=== PATIENT | male | born 1930 | race Caucasian/White ===

== ENCOUNTER 2017-01-05 10:59 | Emergency (ER) | payer OTHER, MEDICARE ==
[~2017-01-05] VITALS: Ht 180.3 cm; Wt 82.6 kg
[~2017-01-05 10:59] MED LIST: AUGMENTIN 875-1 EACH PO; DORZOLAMIDE-TIM10 ML OPH; FIBER500 MG PO; HYDROCHLOROTH12.5 M3 PO; MULTIVITAMINS1 EAC9 PO; TRAVATAN Z5 ML OPH; VERAPAMIL ER240 MG PO
[2017-01-05 11:05] VITALS: BP 145/76
--- NOTE | 2017-01-05 11:28 | ED GENERAL ADULT ---
History of Present Illness General Chief Complaint: Laceration Procedure Stated Complaint: LAC TO R FOREARM Source: patient, family Exam Limitations: no limitations Vital Signs & Intake/Output Vital Signs & Intake/Output Vital Signs Date Time Temp Pulse Resp B/P Pulse O2 O2 Flow FiO2 Ox Delivery Rate 01/05 1105 96.8 72 18 145/76 99 Room Air Allergies Coded Allergies: NO KNOWN ALLERGIES (07/26/12) Reconcile Medications Amoxicillin/Potassium Clav (Augmentin 875-125 Tablet) 1 EACH TABLET 1 TAB PO BID pneumonia Dorzolamide HCl/Timolol Maleat (Dorzolamide-Timolol Eye Drops) 10 ML DROPS 1 GTT OPH BID BOTH EYES (Reported) Hydrochlorothiazide 12.5 MG CAPSULE 1 CAP PO DAILY HYPERTENSION (Reported) Methylcellulose (Fiber) 500 MG TABLET 1 TAB PO DAILY CONSTIPATION (Reported) Multiple Vitamin (Multivitamins) 1 EACH TABLET 1 TAB PO DAILY SUPPLEMENT ( Reported) Mupirocin Calcium (Bactroban) 2 % CREAM..G. 1 GUILLERMO TOP DAILY SKIN TEAR apply to affected area(s) Travoprost (Travatan Z) 5 ML DROPS 1 GTT OPH QPM RIGHT EYE DISEASE (Reported) Verapamil HCl (Verapamil ER) 240 MG CAP24H.PEL 1 CAP PO DAILY HYPERTENSION ( Reported) Triage Note: 86 Y/O MALE PRESENTS WITH SKIN TEAR TO R FOREARM SINCE MONDAY; STATES HE WAS HIT WITH A TREE BRANCH AND WOUND WONT STOP BLEEDING. PT HAS GAUZE IN PLACE WITH DRIED BLOOD ON GAUZE. DENIES PAIN. PT UNSURE OF LAST TETANUS. Triage Nurses Notes Reviewed? yes Onset: Abrupt Duration: day(s): Timing: recent history HPI: 01/05/17 11:42 AM This is an 86-year-old male presents to the emergency department with a skin tear to the right forearm. The patient states that 2 days ago he was carrying a pile of sticks and one of the sticks went into his right upper arm and he sustained a skin tear. His been healing uneventfully but is having some intermittent scant bleeding. The onset of the symptoms was abrupt, the duration was 48 hours ago, the severity is significant as his symptoms required him to come to the department for care. He has not had a tetanus shot in the last 10 years. He denies other complaints. Past History Travel History Traveled to [place] past 21 day No Medical History Any Pertinent Medical History? 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 Hx Contributory? No Review of Systems Review of Systems Constitutional: Denies: fever. EENTM: Reports: no symptoms. Respiratory: Denies: short of breath. Cardiovascular: Denies: chest pain. GI: Reports: no symptoms. Genitourinary: Reports: no symptoms. Musculoskeletal: Reports: see HPI. Skin: Reports: see HPI. Neurological/Psychological: Reports: no symptoms. Hematologic/Endocrine: Reports: bleeding. Immunologic/Allergic: Reports: no symptoms. Physical Exam Physical Exam General Appearance: alert, awake, anxious, mild distress Head: atraumatic, normal appearance Eyes: Bilateral: normal appearance, PERRL, EOMI. Ears, Nose, Throat: normal ENT inspection Neck: normal inspection, supple Respiratory: normal breath sounds, chest non-tender, no respiratory distress Cardiovascular: regular rate/rhythm Peripheral Pulses: 4+ radial (R), 4+ radial (L) Back: normal range of motion Extremities: tenderness Neurologic/Psych: awake, alert, oriented x 3, normal gait Skin: normal color, warm/dry, SKIN AVULSION RIGHT FOREARM Comments: The patient has a healing, 1" x 1", triangular shaped skin avulsion to the right forearm. There is no active bleeding. No palpable foreign body. No evidence of deeper laceration. Radial ulnar and median nerve function is intact in the right hand. The patient was treated with Bactroban ointment. He'll follow-up with his doctor in a week. Return if fever or worse. Core Measures ACS in differential dx? No CVA/TIA Diagnosis: No Severe Sepsis Present: No Septic Shock Present: No Progress Differential Diagnoses I considered the following diagnoses in my evaluation of the patient: [Foreign body, skin avulsion, laceration, cellulitis] Plan of Care: Follow-up with your doctor in 7 days. The possibility of a foreign body was discussed with the patient. Initial ED EKG: none Departure Departure Disposition: HOME OR SELF CARE Condition: Stable Clinical Impression Primary Impression: Skin avulsion Referrals: LAURA FUENTES,GABBIE Baxter (PCP/Family) Departure Forms: Customer Survey General Discharge Information Prescriptions: Current Visit Scripts Mupirocin Calcium (Bactroban) 1 GUILLERMO TOP DAILY #30 GM apply to affected area(s) Critical Care Note Critical Care Note Critical Care Time: non-applicable
[2017-01-05] MEDS ORDERED: BACTROBAN15 GM TOP (11:48)
== END 2017-01-05 12:05 ==
LOC: ERH 10:59
DX: S51.801A Unspecified open wound of right forearm, initial encounter (principal); W45.8XXA Other foreign body or object entering through skin, initial encounter; Y93.89 Activity, other specified; Y92.9 Unspecified place or not applicable
CPT/HCPCS: 90471; 90714

== ENCOUNTER 2017-12-18 02:20 | Inpatient (IN) | payer OTHER, MEDICARE ==
[~2017-12-18] VITALS: Ht 180.3 cm; Wt 80.4 kg
[~2017-12-18 02:20] MED LIST changes: +ASPIRIN325 M2 PO; +BACTROBAN15 GM TOP
--- NOTE | 2017-12-18 10:36 | Patient Discharge Instructions ---
Discharge Instructions General Discharge Information You were seen/treated for: ABDOMINAL AORTIC ANEURYSM You had these procedures: ENDOVASCULAR REPAIR OF ABDOMINLA AORTIC ANEURYSM Watch for these problems: FEVER OVER 100.5 DRAINAGE FROM WOUND SUDDEN INCREASE IN ABDOMINAL PAIN Call Surgeon to remove: WOUND CHECK IN 7-10 DAYS No bath, but you may shower: Yes Other wound care: DAILY DRY DRESSING CHANGE Diet Continue normal diet: Yes Activity Activity Self Limited: Yes Acute Coronary Syndrome Inclusion Criteria At DC or during hospital stay patient has or had the following: ACS DIAGNOSIS No Discharge Core Measures Meds if any: Prescribed or Continued at Discharge Meds if any: NOT Prescribed or Continued at Discharge Congestive Heart Failure Inclusion Criteria At DC or during hospital stay patient has or had the following: CHF DIAGNOSIS No Discharge Core Measures Meds if any: Prescribed or Continued at Discharge Meds if any: NOT Prescribed or Continued at Discharge Cerebrovascular accident Inclusion Criteria At DC or during hospital stay patient has or had the following: CVA/TIA Diagnosis No Discharge Core Measures Meds if any: Prescribed or Continued at Discharge Meds if any: NOT Prescribed or Continued at Discharge Venous thromboembolism Inclusion Criteria VTE Diagnosis No VTE Type NONE VTE Confirmed by (Test) NONE Discharge Core Measures - Per Current guidelines, there needs to be overlap - treatment for the first 5 days of Warfarin therapy. - If discharged on Warfarin prior to 5 days of - overlap therapy, the patient will need to be - assessed for post discharge needs including - *Post discharge parental anticoagulation - *Warfarin and/or parental anticoagulation education - *Follow up date to check INR post discharge At least 5 days overlap therapy as Inpatient No Meds if any: Prescribed or Continued at Discharge Note: Overlap Therapy is Warfarin and Anticoagulant Meds if any: NOT Prescribed or Continued at Discharge
--- NOTE | 2017-12-18 10:37 | Admission Core Measures ---
Acute Coronary Syndrome (CM) ACS Core Measures Acute Coronary Syndrome Diagnosis No Congestive Heart Failure (NEW) CHF Core Measures Congestive Heart Failure Diagnosis No Cerebrovascular Accident (NEW) CVA Core Measures CVA/TIA Diagnosis No Venous Thromboembolism VTE Core [place] (View Protocol) VTE Risk Factors Surgery No Mechanical VTE Prophylaxis d/t N/A MechProphylax Ordered No VTE Pharm Prophylaxis d/t NA PharmProphylax ordered Problem List As ranked by this Provider includes Assessment & Plan 1. AAA (abdominal aortic aneurysm) without rupture HOME MEDS Home Med List Aspirin (Aspirin*) 325 MG TABLET 1 TAB PO DAILY CARDIAC (Reported) Dorzolamide HCl/Timolol Maleat (Dorzolamide-Timolol Eye Drops) 10 ML DROPS 1 GTT OPH BID BOTH EYES (Reported) Hydrochlorothiazide 12.5 MG CAPSULE 1 CAP PO DAILY HYPERTENSION (Reported) Methylcellulose (Fiber) 500 MG TABLET 1 TAB PO DAILY CONSTIPATION (Reported) Multiple Vitamin (Multivitamins) 1 EACH TABLET 1 TAB PO DAILY SUPPLEMENT ( Reported) Travoprost (Travatan Z) 5 ML DROPS 1 GTT OPH QPM RIGHT EYE DISEASE (Reported) Verapamil HCl (Verapamil ER) 240 MG CAP24H.PEL 1 CAP PO DAILY HYPERTENSION ( Reported)
--- NOTE | 2017-12-18 10:42 | Surgical Discharge Summary ---
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 Psychosocial History What is Your Primary Language? Armenian Review of Systems: NEG Hospital Course Course Attending Physician: Kevin Kaufman MD Primary Care Physician: Garo Cadena MD Hospital Course: PT PRESENTED TO [facility] ON 12/18/17 FOR AN ELECTIVE ENDOVASCULAR REPAIR OF A AAA BY DR KAUFMAN. PT TOLERATED TO PROCEDURE WELL. PT WAS FLAT FOR 4 HOURS POST-OPERATIVELY. HIS PAIN WAS CONTROLLED, HE TOELRATED A DIET, VOIDED SPONTANEOUSLY AND WAS CLEARED FOR DISCHARGE TO HOME. PT WAS GIVEN DISCHARGE INSTRUCTIONS AND INSTRUCTIONS TO FOLLOW-UP WITH DR KAUFMAN IN 7-14 DAYS Allergies: Coded Allergies: No Known Allergies (12/15/17) Disposition Summary Disposition Principal Diagnosis: AAA Additional Diagnosis: SP EVAR Discharge Disposition: home or self care Discharge Instructions General Discharge Information Code Status: Full Code Patient's Diet: REGULAR Patient's Activity: SELF LIMITED Follow-Up Instructions/Appts: FOLLOW-UP WITH DR KAUFMAN IN 7-14 DAYS Copies To: Garo Cadena MD; Kevin Kaufman MD
[2017-12-18 13:18] VITALS: BP 116/60
--- NOTE | 2017-12-18 14:47 | PN- Student ---
Ajith Morfin 12/18/17 1437: Subjective Subjective: patient states he is feeling well s/p EVAR. patient denies abdominal pain and groin pain at this time. patient states understanding of instructions to remain in bed until 1800. Objective Objective: general: well appearing, NAD, sitting up in bed eating heart: bradycardic, normal rhythm, no MRG Lung: CTAB, no accessory muscle usage abdomen: soft, NT, ND, no erythema or ecchymosis. dressings C/D/I in b/l groin extremities: gross strength intact and equal in b/l LE, 1+ palpable DP/PT bilaterally, DP/PT signals present bilaterally neuro: gross senstation intact in b/l lower extremities Assessment/Plan Assessment: patient is an 87 y/o male, POD #0 s/p EVAR. patient tolerated procedure well and is recovering as expected. Plan: activity: bedrest until 1800, then OOB as tolerated. patient had been flat until 1400 diet: regular diet as tolerated anticoagulation: continue home aspirin Pain: PRN pain meds Dressing change POD#2 continue home medications Earline Streeter 12/18/17 1509: Assessment/Plan Plan: Patient seen with PA student. Feeling well, just sat up in bed at 2pm. Oain wellc ontrolled, palpable DT/PT bl, BL groin dressing CDI, soft without hematoma. Agree w above plan
--- NOTE | 2017-12-18 14:51 | RADIOLOGY REPORT ---
EXAMINATION: INTRAOPERATIVE FLUOROSCOPY DURING EVAR CLINICAL INDICATION: 87-year-old male with infrarenal abdominal aortic aneurysm. COMPARISON: None. TECHNIQUE: The procedure was performed by Dr. Kaufman in the operating room. FLUOROSCOPY TIME: 16 minutes 56 seconds. NUMBER OF IMAGES: 12 FINDINGS: Multiple abdominal aortic angiographic images were obtained demonstrating an infrarenal abdominal aortic aneurysm. An aortobiiliac stent graft is subsequently placed. 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 IMPRESSION: Intraoperative fluoroscopy was utilized by Dr. Kaufman during endovascular aortic aneurysm repair. Please refer to the operative report for a detailed description of the procedure and the real-time findings made and acted upon by the surgeon.
--- NOTE | 2017-12-18 14:54 | Operative Report ---
Operative/Inv Procedure Report Surgery Date: 12/18/17 Name of Procedure: Endovascular aortic aneurysm repair (EVAR) with a 31 mm Banner C3 excluder stent graft, aortography, percutaneous access with ultrasound guidance, 2 docking limbs, supervision and interpretation of aortography Pre-Operative Diagnosis: AAA 5.5 cm Post-Operative Diagnosis: AAA 5.5 cm Estimated Blood Loss: 400 cc Surgeon/Case Finisher: Mandeep FUENTES,Vic Brown MD, Mateusz (asst.) Anesthesia: general endotracheal tube Implants: Banner stent graft 31 mm / 2 docking limbs Condition: Stable to PACU Operative Indication: 5.5 cm AAA-This is an 87-year-old male with a increasing abdominal aortic aneurysm. Risks and benefits were explained to patient including bleeding,limb loss, infection, pain and scarring. He decided to proceed with intervention. Of note two MDs were needed for surgery and were required for this procedure due to its complexity and lack of a adequate resident's/PAs for assistance. Operative/Procedure Note Note: Patient was brought to the operating room and laid supine on the table. After adequate anesthesia, IV lines, a timeout was held in accordance with [facility] policy. Of note two MDs were needed for surgery and were required for this procedure due to its complexity and lack of a adequate resident's/PAs for assistance (MOD. 82). Using ultrasound guidance bilateral femoral arteries were punctured. The vessels were patent and an image was stored. 2 Proglide closure devices were then used for a way to seal the artery at the conclusion of the procedure. Bilateral 8 Vietnamese sheaths were placed. Via the left femoral puncture site a pigtail catheter was placed and aortography was performed. This demonstrates patent bilateral renal arteries and internal iliac arteries. The patient's known aneurysm is noted. An 18 Vietnamese sheath was then placed on the right. The patient was bolused with 5000 units of heparin. A 12 Vietnamese sheath was placed on the left. A Banner excluder 31 mm stent graft was then placed in the infrarenal position. It was deployed under direct fluoroscopy. The contralateral gait was then cannulated and two docking limbs were placed. A flared limb was placed on the left and a flared limb Was placed on the right. Aortography was then performed after the graft was dilated with a Coda balloon. This demonstrates in-line flow with no evidence of a type I,II or III endoleak. The bilateral renal and bilateral internal iliac arteries are patent. The catheter, sheath and wire systems were then removed. 2 Proglides were placed on each artery with excellent hemostasis. The patient tolerated the procedure well. Sponge and needle and instrument counts were correct. The puncture sites were closed with an interrupted suture and BioGlue. The groins were dressed with a gauze and Tegaderm dressing. The patient was transferred to the recovery area extubated and stable awake and alert. His lower extremities were well perfused and he was neurologically intact. CC: Fuad Aragon MD
[2017-12-18 16:33] VITALS: BP 110/60
[2017-12-18 18:30] VITALS: BP 118/66
[2017-12-18 22:28] VITALS: BP 110/62
[2017-12-19 02:40] VITALS: BP 142/78
[2017-12-19 07:23] VITALS: BP 116/58
--- NOTE | 2017-12-19 07:29 | PN- Vascular Surgery ---
Subjective Subjective: pT IN BED, NO COMPLAINTS. HAS NO AMBULATED YET BUT WANTS TO GO HOME. TOLERATING DIET, NO N/V. VOIDING SAGE CP/SOB/HAMMONDS Objective Vital Signs and I&Os Vital Signs Date Time Temp Pulse Resp B/P B/P Pulse O2 O2 Flow FiO2 Mean Ox Delivery Rate 12/19 0723 97.8 81 18 116/58 93 12/19 0240 98.0 78 18 142/78 95 Room Air 12/19 0000 Nasal 1.0L Cannula 12/18 2228 99.1 68 18 110/62 92 Nasal 2.0L Cannula 12/18 1830 98.0 64 16 118/66 95 Nasal 2.0L Cannula 12/18 1642 93 Room Air 1.0L 12/18 1633 18 110/60 97 Nasal 2.0L Cannula 12/18 1318 98.0 52 20 116/60 97 Nasal 2.0L Cannula Intake & Output 12/19 0800 12/19 0000 12/18 1600 12/18 0800 12/18 0000 12/17 1600 Intake Total 400 800 270 Output Total 700 700 100 Balance -300 100 170 Intake, IV 400 150 Intake, Oral 800 120 Output, Urine 700 700 100 Patient 177 lb 167 lb Weight Weight Bed scale Bed scale Measurement Method Physical Exam: GEN-NAD RESP- CLEAR ABD- ND, SOFT, NT EXT- GROIN WOUNDS ARE COVERED WITH CLEAN AND DRY DRESSING BILATERALLY. 1+ pt PULSES BILATERALLY. DISTAL SENSORY AND MOTOR FUNCTION INTACT Current Medications: Current Medications Sig/Raffi Start time Last Medication Dose Route Stop Time Status Admin Acetaminophen 650 MG Q6P PRN 12/18 1230 AC PO Acetaminophen 1,000 MG .STK-MED ONE 12/18 0952 DC IV 12/18 0953 Aspirin 325 MG DAILY 12/19 1000 DC PO Aspirin 325 MG DAILY 12/19 1000 AC PO Dextrose/Sodium 1,000 ML .Q20H 12/18 1230 AC 12/18 Chloride IV 2342 Docusate Sodium 100 MG BID 12/18 2200 AC 12/18 PO 2048 Hydrochlorothiazide 12.5 MG DAILY 12/19 1000 DC PO Hydrochlorothiazide 12.5 MG DAILY 12/19 1000 AC PO Ondansetron HCl 4 MG Q6P PRN 12/18 1230 AC IV Oxycodone/ 1 TAB Q4P PRN 12/18 1230 AC Acetaminophen PO Oxycodone/ 2 TAB Q4P PRN 12/18 1230 AC Acetaminophen PO Promethazine HCl 12.5 MG Q6P PRN 12/18 1230 AC IV 12/25 1029 Verapamil HCl 240 MG DAILY 12/19 1000 AC PO Verapamil HCl 80 MG TID 12/18 1600 DC PO Verapamil HCl 80 MG TID 12/18 1600 DC PO Assessment/Plan Assessment/Plan 87YO M SP EVAR POD1. STABLE. NEEDS TO AMBULATE THIS MORNING ANTICOAGULATION- [id number] DAILY REG DIET FU WITH DR CARLSON IN 1-2 WEEKS CONT REGULAR HOME MEDICATIONS Core Measures Venous Thromboembolism VTE Risk Factors Surgery No Mechanical VTE Prophylaxis d/t N/A MechProphylax Ordered No VTE Pharm Prophylaxis d/t NA PharmProphylax ordered
[2017-12-19 08:15] LABS: ABSOLUTE BASOPHIL COUNT 0 /CUMM (0.0-0.2); ABSOLUTE EOSINOPHIL COUNT 0.2 /CUMM (0.0-0.7); ABSOLUTE GRANULOCYTE CT 8.6 /CUMM (1.4-6.5); ABSOLUTE LYMPH COUNT 0.8 /CUMM (1.2-3.4); ABSOLUTE MONOCYTE COUNT 0.8 /CUMM (0.10-0.60); BASOPHIL % 0.2 % (0.0-2.0); EOSINOPHIL % 1.9 % (0-5); GRANULOCYTE % 82.5 % (42.2-75.2); HEMATOCRIT 33.9 % (42-52); MEAN CORPUSCULAR HGB 34.3 PG (27.0-31.0); MEAN CORPUSCULAR HGB CONC 34.6 G/DL (33.0-37.0); MEAN PLATELET VOLUME 7.4 FL (7.4-10.4); PLATELET COUNT 141 /CUMM (130-400); RBC DISTRIBUTION WIDTH 13.6 % (11.5-14.5); RED BLOOD CELL CT 3.43 /CUMM (4.70-6.10); WHITE BLOOD CELL COUNT 10.5 /CUMM (4.8-10.8)
[2017-12-19 10:07] VITALS: BP 122/62
== END 2017-12-19 12:45 | DRG 269 ==
LOC: 2NB 02:20 → SDA 02:20 → EDBEDREQ 10:24 → ENRESERV 10:48 → ENTRNSPT 11:33 → EDTRNSPTSTS 11:57 → EDTRNSPT 11:57 → 2NB 12:06 → CMPTRNSPT 12:23 → EDTRNSPT 12:23 → ENPENDDIS 12-19 07:36 → ENTRNSPT 12-19 12:36 → EDTRNSPTSTS 12-19 12:39 → EDTRNSPT 12-19 12:39 → 2NB 12-19 12:45 → CMPTRNSPT 12-19 12:47
PROVIDERS: Physician Assistant Surgical
PROC: 04V03DZ Restriction of Abdominal Aorta with Intraluminal Device, Percutaneous Approach (ICD-10-PCS; principal; 2017-12-18)
DX: I71.4 Abdominal aortic aneurysm, without rupture (principal); H40.9 Unspecified glaucoma; H91.90 Unspecified hearing loss, unspecified ear; Z85.038 Personal history of other malignant neoplasm of large intestine; Z85.46 Personal history of malignant neoplasm of prostate; I10 Essential (primary) hypertension; Z97.4 Presence of external hearing-aid; Z90.49 Acquired absence of other specified parts of digestive tract; Z85.828 Personal history of other malignant neoplasm of skin; Z79.82 Long term (current) use of aspirin
CPT/HCPCS: 2NBSP; 36415; 36592; 74018; 82436; C1725; C1760; C9399; J0131; J1644; J2405; J2550; J7042; Q9965; Q9967

== ENCOUNTER → 2018-05-08 | Day surgery (SDC) | payer OTHER, MEDICARE ==
[~2018-05-08] VITALS: Ht 180.3 cm; Wt 79.4 kg
--- NOTE | 2018-05-08 16:26 | Operative Report ---
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 The patient was noted to have significant zonular laxity preoperatively with phacodonesis. The risks, benefits, and alternatives to surgery were discussed at length with the patient. Informed consent was obtained. The patient was brought to the operating room where the right eye was prepped and draped in the normal sterile fashion. A speculum was placed on the right eye with good exposure. Stab incisions were made using a paracentesis blade. The anterior chamber was filled with VisionBlue and rinsed out with balanced salt solution. There was good staining of the anterior capsule. Iris hooks were placed to expand the pupil with good exposure. Intracameral lidocaine was placed. Viscoelastic was used to form the anterior chamber. A clear corneal incision was made using keratome blade. A continuous curvilinear capsulorrhexis was made using a cystotome needle followed by Utrata forceps. There was no extension of the rhexis. The iris hooks were used to hold onto the anterior capsule. Hydrodissection was performed using balanced salt solution. The cataract was removed using a stop and chop technique. Residual cortex was removed using coaxial irrigation and aspiration. There was no evidence of ruptured capsule or extension of the rhexis. The capsule was polished using irrigation and aspiration and the posterior capsule was cleaned using a balanced salt solution jet. There was no residual lens material inside the eye. The capsular bag was reformed using viscoelastic. A capsular tension ring was placed. An intraocular lens [id number] of power 14.5 was verified and confirmed. It was loaded into an injector and injected into the eye. The lens was placed entirely within the capsular bag. The iris hooks were removed. Conjunctival peritomies were made at 12 and 6:00. Hemostasis was achieved with cautery. Using an external technique with 9-0 Prolene suture in this 26-gauge needle, Ahmed segments were used to secure the capsular bag to the scleral wall superiorly and inferiorly. There was good centration of the lens and the capsular bag was stable. Viscoelastic was evacuated using irrigation and aspiration. The wounds were stromally hydrated and the eye filled to physiologic pressure using balanced salt solution. Intracameral cefuroxime was placed. Speculum was removed and a shield was placed on the eye. The patient was brought to the recovery area without incident. Instructions were given to follow-up the next day for routine postoperative care.
== END ==
LOC: STS 02:58
DX: H25.89 Other age-related cataract (principal); H21.561 Pupillary abnormality, right eye; I10 Essential (primary) hypertension; I71.4 Abdominal aortic aneurysm, without rupture
CPT/HCPCS: J2250; V2632